=== PATIENT | male | born 2000 | race African-American/Black ===

== ENCOUNTER 2020-06-29 13:26 | Emergency (ER) | payer OTHER ==
[2020-06-29] MEDS ORDERED: DIPHTH,PERTUSS(ACELL),TET 0.5 ML DISP.SYRIN IM ONE (13:30)
--- NOTE | 2020-06-29 13:33 | PDOC ---
Rapid Medical Evaluation Time Seen by Provider: 06/29/20 13:29 Medical Evaluation: 06/29/20 13:31 CC: lac to rt finger after being cut by a piece of glass on the ground, tdap 2012 Exam: noted 3 cm lac to lat aspect of rt 2nd MCP. FROM of digit Plan: xray and tdap Discharge Disposition - Diagnosis Finger injury - Referrals - Patient Instructions - Post Discharge Activity
[2020-06-29 13:47] VITALS: BP 123/70; PULSE 105; TEMP 97.7; BMI 23.7
[2020-06-29] MEDS ORDERED: KETOROLAC TROMETHAMINE 30 MG/1 ML VIAL IM ONE (14:23)
--- NOTE | 2020-06-29 14:23 | PDOC ---
History of Present Illness - General Chief Complaint: Injury Stated Complaint: RT. HAND LAC. Time Seen by Provider: 06/29/20 13:29 History Source: Patient Exam Limitations: Clinical Condition - History of Present Illness Initial Comments: 06/29/20 14:27 Patient with no significant past medical history present with complaint of laceration to right index finger and palmar aspect of right hand status post playing around with a friend and falling on a broken glass on the floor prior to arrival. Patient reported last tetanus vaccine over 10 years ago. Patient also reported swelling to right hand status post punching a wall 3 days ago. Patient has not taken anything for symptoms. Denies numbness or tingling sensation. Denies any other symptoms Timing/Duration: reports: just prior to arrival Location: reports: hands Associated Symptoms: denies: numbness, paresthesia, tingling Past History - Medical History Allergies/Adverse Reactions: Allergies Allergy/AdvReac Type Severity Reaction Status Date / Time No Known Allergies Allergy Verified 06/29/20 13:44 Home Medications: Ambulatory Orders Amox-Tr/K Cl [Augmentin - 875Mg Tablet] 1 tab PO BID #14 tablet 06/29/20 Ibuprofen 800 mg PO Q8H PRN #20 tablet 06/29/20 - Psycho-Social/Smoking History Smoking History: Never smoked - Substance Abuse Hx (Audit-C & DAST Scrn) How often the patient has a drink containing alcohol: Never Score: In Men: 4 or > Positive; In Women: 3 or > Positive: 0 Screen Result (Pos requires Nsg. Audit-10AR): Negative In the last yr the pt used illegal drug/Rx for NonMed reason: No Score: Yes response is considered Positive: 0 Screen Result (Positive result requires Nsg. DAST-10): Negative Review of Systems - Review of Systems Able to Perform ROS?: Yes Is the patient limited Malay proficient: No Constitutional: No: Chills, Fever, Malaise HEENTM: No: Symptoms Reported, See HPI, Eye Pain, Blurred Vision, Tearing, Recent change in vision, Double Vision, Cataracts, Ear Pain, Ocular Prothesis, Ear Discharge, Nose Pain, Nose Congestion, Tinnitus, Nose Bleeding, Hearing Loss, Throat Pain, Throat Swelling, Mouth Pain, Dental Problems, Difficulty Swallowing, Mouth Swelling, Other Respiratory: No: Symptoms reported, See HPI, Cough, Orthopnea, Shortness of Breath, SOB with Exertion, SOB at Rest, Stridor, Wheezing, Productive cough, Hemoptysis, Other Cardiac (ROS): No: Symptoms Reported, See HPI, Chest Pain, Edema, Irregular Heart Rate, Lightheadedness, Palpitations, Syncope, Chest Tightness, Other ABD/GI: No: Symptoms Reported Musculoskeletal: Yes: Symptoms Reported, See HPI, Muscle Pain (right hand pain) Integumentary: Yes: Symptoms Reported, See HPI, Other (laceration to right index finger and hand) Neurological: No: Symptoms reported, Numbness, Paresthesia, Tingling, Dizziness All Other Systems: Reviewed and Negative *Physical Exam - Vital Signs Last Vital Signs Temp Pulse Resp BP Pulse Ox 97.7 F 105 H 16 123/70 96 06/29/20 13:45 06/29/20 13:45 06/29/20 13:45 06/29/20 13:45 06/29/20 13:45 - Physical Exam 06/29/20 14:25 GENERAL: Well developed, well nourished. Awake and alert in mild acute distress. PULMONARY: No evidence of respiratory distress. MUSCULOSKELETAL : Moderate tenderness to right index finger over laceration. Full range of motion of fingers. 5 out of 5 to right index finger and hand. SKIN: Warm and dry. Normal capillary refill. Moderate swelling to right index finger and dorsal aspect of right hand. 3 cm deep laceration to proximal phalange over radial plantar aspect of right index finger with moderate bleeding. Another 3 cm superficial abrasion to palm of right hand with no active bleeding. NEUROLOGICAL: Alert, awake, appropriate. No motor deficits in the lower extremities. Gait is normal without ataxia. Normal sensory to right hand and fingers. Full range of motion of right hand and fingers. Patient able to make fist without problem PSYCHIATRIC: Cooperative. Good eye contact. Appropriate mood and affect. General Appearance: Yes: Nourished, Appropriately Dressed, Apparent Distress, Mild Distress Procedures - Laceration/Wound Repair Right Lateral Proximal Dorsal Finger 2nd digit Wound Length: 2.6 to 5.0 cm Wound Explored: clean Wound's Depth, Shape: linear, contused tissue Irrigated w/ Saline: Yes Betadine Prep: Yes Anesthesia: 1% Lidocaine Amount of Anesthetic (ccs): 2 Wound Repaired With: Sutures Suture Size/Type: 4:0, nylon Number of Sutures: 6 Layer Closure: No Sterile Dressing Applied: Yes Splint Applied: No Sling Applied: Yes Progress: 06/29/20 14:32 3 cm deep wound to right index finger irrigated with saline and infiltrated with 2 cc 1% lidocaine. Wound closed with 6 interrupted 4 nylon sutures with close approximation. Hemostasis achieved. Bacitracin applied to wound and wound covered with adhesive bandage. Patient tolerated procedure well and tetanus vaccine given. Patient stable for discharge and left room without complication ED Treatment Course - Medications Given in the ED: ED Medications Discontinued Medications Generic Name Dose Route Start Last Admin Trade Name Jose Alberto PRN Reason Stop Dose Admin Diphtheria/Tetanus/Acell Pertussis 0.5 ml 06/29/20 13:30 06/29/20 13:48 Boostrix - IM 06/29/20 13:31 0.5 ml .ONCE ONE Administration Medical Decision Making - Medical Decision Making 06/29/20 14:28 Patient with no significant past medical history present with complaint of laceration to right index finger and palmar aspect of right hand status post playing around with a friend and falling on a broken glass on the floor prior to arrival. Patient reported last tetanus vaccine over 10 years ago. Patient also reported swelling to right hand status post punching a wall 3 days ago. Patient has not taken anything for symptoms. Denies numbness or tingling sensation. Denies any other symptoms Exam significant for 3 cm laceration to right index finger with another superficial laceration to palm of right hand. Moderate swelling to dorsal aspect of right hand with no visible deformity. Full range of motion of hands and fingers. Normal sensory and motor on exam of right hand and fingers. Wound irrigated with normal saline. Wound infiltrated with 2 cc 1% lidocaine and closed with 6 interrupted sutures of 2 right index finger. Patient tolerated procedure well. Tetanus vaccine given by nurse. Toradol 30 mg IM ordered for pain. Right hand wrapped with Jerry bandage. X-ray of right hand shows no acute fracture or or foreign body. Patient stable for discharge on Augmentin antibiotics twice daily for a week for infection prophylaxis and Motrin as needed for pain with strict follow-up instructions and continues home wound care Discharge - Discharge Information Problems reviewed: Yes Clinical Impression/Diagnosis: Laceration of index finger of right hand without complication Finger injury Qualifiers: Encounter type: initial encounter Laterality: right Qualified Code(s): S69.91XA - Unspecified injury of right wrist, hand and finger(s), initial encounter Condition: Stable Disposition: HOME - Admission No - Additional Discharge Information Prescriptions: Amox-Tr/K Cl [Augmentin - 875Mg Tablet] 1 tab PO BID #14 tablet Ibuprofen 800 mg PO Q8H PRN #20 tablet PRN Reason: pain - Follow up/Referral - Patient Discharge Instructions Patient Printed Discharge Instructions: DI for Laceration Repair, DI for Laceration Repair -- Finger Additional Instructions: Keep wound clean and dry for the next 24 hours. Apply bacitracin to wound twice a day. Take prescribed antibiotics and finish. Restrained for strenuous activity with the right hand. Follow-up in 5 to 7 days for suture removal - Post Discharge Activity
[2020-06-29] MEDS ORDERED: KETOROLAC TROMETHAMINE 30 MG/1 ML VIAL ONE (14:25)
== END 2020-06-29 14:51 | disposition home or self-care (01) ==
LOC: JERFT 13:26
PROC: 0HQFXZZ Repair Right Hand Skin, External Approach (ICD-10-PCS; principal; 2020-06-29)
PROC: 3E0234Z Introduction of Serum, Toxoid and Vaccine into Muscle, Percutaneous Approach (ICD-10-PCS; 2020-06-29)
PROC: 3E023GC Introduction of Other Therapeutic Substance into Muscle, Percutaneous Approach (ICD-10-PCS; 2020-06-29)
DX: S61.210A Laceration without foreign body of right index finger without damage to nail, initial encounter (principal); S69.91XA Unspecified injury of right wrist, hand and finger(s), initial encounter
CPT/HCPCS: 73140-TC-RT-FY; 90715; 99284-25